=== PATIENT | male | born 1940 | race Caucasian/White ===

== ENCOUNTER 2017-05-11 08:29 | Outpatient (CLI) ==
--- NOTE | 2017-05-11 10:00 | CT ---
EXAM: CT chest without contrast. HISTORY: Hypertension. Smoking history. Weight loss. Prostate cancer. COMPARISON: None available. TECHNIQUE: Multiple axial images of the chest were obtained without intravenous contrast. Images we re reformatted in the sagittal and coronal planes. FINDINGS: Evaluation for lymphadenopathy is limited by lack of intravenous contrast. Calcified medi astinal and hilar lymph nodes are present. Heart size is at the upper limits of normal. Atheroscler otic calcifications present. Trace amount pericardial fluid noted. Left lower lobe calcified granul mahsa noted. No suspicious nodule, consolidation, pleural effusion or pneumothorax identified. Minima l emphysematous changes may be present. Limited images of the upper abdomen will be reported separately. Degenerative changes seen throughou t the spine with severe arthritic changes of both glenohumeral joints noted. No osteolytic or osteob lastic lesion identified. IMPRESSION: No acute cardiopulmonary process.
--- NOTE | 2017-05-11 10:03 | CT ---
EXAM: CT abdomen pelvis with contrast HISTORY: Weight loss COMPARISON: None TECHNIQUE: CT abdomen pelvis performed with intravenous contrast. Coronal and sagittal reformatted images obtained. FINDINGS: Evaluation limited by motion artifact. Please refer to separate report CT chest regarding findings in the lower chest. No free air. No acute abnormalities of the bones. A few scattered den se sclerotic foci likely bone islands. Degenerative change in the spine. Advanced degenerative parkinson e in the spine. Leftward curvature lumbar spine. Liver grossly unremarkable. Gallbladder grossly unremarkable. Pancreas grossly unremarkable. Spleen grossly unremarkable. Adrenals grossly unrema rkable. Bilateral renal cysts. Kidneys otherwise grossly unremarkable. Mild bilateral perinephric stranding likely senescent change. Moderate atherosclerosis. Ectasia infrarenal abdominal aorta cash suring up to 2.6 cm. Prostate moderately enlarged, indenting the bladder base. Circumferential blad citlali wall thickening. Right posterior bladder diverticulum. No lymphadenopathy or ascites. Stomach unremarkable. No dilated loops small bowel. Appendix appears normal. Colonic diverticulosis. Mild to moderate fecal retention, greatest in the rectum. No inflammatory stranding identified. IMPRESSION: 1. Evaluation limited by motion artifact. 2. Enlarged prostate indenting the bladder base. Bladder wall thickening may relate to changes of c hronic outlet obstruction and/or cystitis. Right posterior bladder diverticulum. 3. Colonic diverticulosis. 4. Mild to moderate fecal retention, greatest in the rectum. 5. Atherosclerosis. Ectasia infrarenal abdominal aorta measuring up to 2.6 cm.
== END 2017-05-11 08:30 | disposition home or self-care (01) ==
LOC: RAD 08:29
PROVIDERS: ATTEND Internal Medicine
DX: R63.4 Abnormal weight loss (principal); I10 Essential (primary) hypertension; Z72.0 Tobacco use

== ENCOUNTER 2018-05-21 08:17 | Day surgery (SDC) ==
[2018-05-21] MEDS ORDERED: DIPRIVAN 20 ML VIAL IVP ONE (10:20)
--- NOTE | 2018-05-22 11:54 | OP ---
INDICATIONS FOR PROCEDURE: 77 year old gentleman is found to be anemic with weight loss. He presents for his first ever colonoscopy. He did tell me he took prep and he should be clean he stated. MEDICATIONS: SEE ANESTHESIA NOTES. PROCEDURE: COLONOSCOPY TO THE SIGMOID THEN ABORTED SECONDARY TO POOR PREP. REPORT: The risks, benefits, alternatives and limitations were discussed in detail with the patient. Informed consent was obtained. After adequate sedation was achieved, a digital rectal exam revealed good tone, no masses. The colonoscope was introduced into the rectum there is liquid stool covering the art. I advanced the scope to the sigmoid here. The lumen is completely obscured by liquid and solid stool. I had no visualization. At this time point the decision was made to abort the procedure secondary to inadequate prep not allowing any significant visualization. The scope was withdraw. The patient tolerated the procedure well with stable vital signs and pulse oximetry throughout. IMPRESSION: 1. Complete inadequate prep not allowing colonoscopy RECOMMENDATIONS: 1. I will discuss with the patient again proper prep technique and things we can do. If he is willing we will rescheduled colonoscopy at a later date. He will need to contact my office to schedule. CC: Dr. Diaz ADDENDUM: I spoke to Mr. Jaramillo at length. We discussed the prep. The nursing staff had also spoken with him. He states "Under no circumstances does he want to go through this processes again." He did state that he is willing to "live with what I have". I did advise him that if he should change his mind and desire to pursue colonoscopy if he should develop any questions or concerns then to contact us. He agreed to do so. We will abide by his wishes. We will see him back as needed. CEZAR
[2018-05-22 15:19] VITALS: BP 129/56
== END 2018-05-21 12:15 | disposition home or self-care (01) ==
LOC: SURG 08:17
PROVIDERS: ATTEND Internal Medicine Gastroenterology
DX: Z12.11 Encounter for screening for malignant neoplasm of colon (principal); D64.9 Anemia, unspecified
CPT/HCPCS: 00812; G0121